=== PATIENT | female | born 1985 | race Caucasian/White ===

== ENCOUNTER 2016-09-22 09:41 | Emergency (ER) | payer MEDICAID ==
--- NOTE | 2016-09-22 09:47 | ER Document Report ---
ED General - General Stated Complaint: POSSIBLE SEIZURE Time Seen by Provider: 09/22/16 09:44 Mode of Arrival: Medic Information source: Patient, Emergency Med Personnel Notes: 30-year-old female history of seizure/pseudoseizure activity with recurrent heroin abuse on Suboxone presents with a seizure-like episode prior to arrival. Patient's significant other noted to be intoxicated on scene patient herself admits to drinking alcohol TRAVEL OUTSIDE OF THE [place] IN LAST 30 DAYS: No - HPI Onset: Just prior to arrival Onset/Duration: Sudden Quality of pain: No pain Severity: Mild Pain Level: Denies Associated symptoms: Weakness Exacerbated by: Denies Relieved by: Denies Similar symptoms previously: Yes Recently seen / treated by doctor: Yes - Related Data Allergies/Adverse Reactions: No Known Allergies Allergy (Unverified 08/21/15 21:22) Past Medical History - Social History Smoking Status: Never Smoker Cigarette use (# per day): No Chew tobacco use (# tins/day): No Smoking Education Provided: No Frequency of alcohol use: Occasional Drug Abuse: Heroin - hx of denies any current use Family History: None Review of Systems - Review of Systems Notes: REVIEW OF SYSTEMS: CONSTITUTIONAL : Denies fever, chills, or sweats. Denies recent illness. EENT: Denies eye, ear, throat, or mouth pain or symptoms. Denies nasal or sinus congestion or discharge. Denies throat, tongue, or mouth swelling or difficulty swallowing. CARDIOVASCULAR: Denies chest pain. Denies palpitations or racing or irregular heart beat. Denies ankle edema. RESPIRATORY: Denies cough, cold, or chest congestion. Denies shortness of breath, difficulty breathing, or wheezing. GASTROINTESTINAL: Denies abdominal pain or distention. Denies nausea, vomiting , or diarrhea. Denies blood in vomitus, stools, or per rectum. Denies black, tarry stools. Denies constipation. GENITOURINARY: Denies difficulty urinating, painful urination, burning, frequency, blood in urine, or discharge. FEMALE GENITOURINARY: Denies vaginal bleeding, heavy or abnormal periods, irregular periods. Denies vaginal discharge or odor. MUSCULOSKELETAL: Denies back or neck pain or stiffness. Denies joint pain or swelling. SKIN: Denies rash, lesions or sores. HEMATOLOGIC : Denies easy bruising or bleeding. LYMPHATIC: Denies swollen, enlarged glands. NEUROLOGICAL: Admits to seizure-like activity PSYCHIATRIC: Denies anxiety or stress. Denies depression, suicidal ideation, or homicidal ideation. ALL OTHER SYSTEMS REVIEWED AND NEGATIVE. PHYSICAL EXAMINATION: GENERAL: Well-appearing, well-nourished and in no acute distress. HEAD: Atraumatic, normocephalic. EYES: Pupils equal round and reactive to light, extraocular movements intact, conjunctiva are normal. ENT: Nares patent, oropharynx clear without exudates. Moist mucous membranes. NECK: Normal range of motion, supple without lymphadenopathy LUNGS: Breath sounds clear to auscultation bilaterally and equal. No wheezes rales or rhonchi. HEART: Regular rate and rhythm without murmurs ABDOMEN: Soft, nontender, nondistended abdomen. No guarding, no rebound. No masses appreciated. Female : deferred Musculoskeletal: Normal range of motion, no pitting or edema. No cyanosis. NEUROLOGICAL: Cranial nerves grossly intact. Normal speech, normal gait. Normal sensory, motor exams patient answering questions with no difficulty PSYCH: Normal mood, normal affect. SKIN: Warm, Dry, normal turgor, no rashes or lesions noted. Dictation was performed using [employer] voice recognition software Physical Exam - Vital signs Vitals: Resp Pulse Ox 20 97 09/22/16 09:49 09/22/16 09:49 Course - Re-evaluation Re-evalutation: 09/22/16 09:46 Initial GCS of 9 however patient is answering questions appropriately answers her name denies any heroin use lab work imaging pending 09/22/16 11:06 His lab work is consistent with benzos cocaine. She otherwise has a negative head CT is alert oriented and is stable for discharge. She had stated that she had only drank 1 beer, alcohol level at 9 AM in the morning is 133. She will be discharged once there is able bodied ride After performing a Medical Screening Examination, I estimate there is LOW risk for ACUTE GLAUCOMA, TEMPORAL ARTERITIS, MENINGITIS, INCRANIAL HEMORRHAGE, or ISCHEMIC STROKE thus I consider the discharge disposition reasonable. I have reevaluated this patient multiple times and no significant life threatening changes are noted. The patient and I have discussed the diagnosis and risks, and we agree with discharging home with close follow-up with the understanding that symptoms and presentations can change. We also discussed returning to the Emergency Department immediately if new or worsening symptoms occur. We have discussed the symptoms which are most concerning (e.g., changing or worsening symptoms, new numbness or weakness, vomiting, fever) that necessitate immediate return. - Vital Signs Vital signs: Temp Pulse Resp BP Pulse Ox 98.8 F 19 120/78 96 09/22/16 10:44 09/22/16 10:07 09/22/16 10:07 09/22/16 10:07 - Laboratory Result Diagrams: 09/22/16 09:49 09/22/16 10:25 Laboratory results interpreted by me: 09/22/16 09/22/16 09:49 10:25 RDW 14.5 H Chloride 110 H BUN 5 L - Diagnostic Test Radiology reviewed: Image reviewed, Reports reviewed - No acute abnormality Discharge - Discharge Clinical Impression: Seizure-like activity, Cocaine abuse, Benzodiazepine abuse, Alcohol abuse Condition: Stable Disposition: HOME, SELF-CARE Instructions: Seizure, Known Epileptic ([facility]) Additional Instructions: Please follow-up with your primary care physician or neurologist for reevaluation. Please decrease the use of illegal substances and heavy alcohol use
[2016-09-22 10:03] LABS: ABSOLUTE BASOPHILS # (AUTO) 0.1 10^3/uL (0.0-0.2); ABSOLUTE EOSINOPHILS # (AUTO) 0.4 10^3/uL (0.0-0.6); ABSOLUTE LYMPHOCYTES (AUTO) 3.1 10^3/uL (0.5-4.7); BASOPHILS % (AUTO) 0.6 % (0-2); EOSINOPHILS % (AUTO) 4.2 % (0-6); HEMATOCRIT 39.5 % (36.0-47.0); HGB HCT DIFFERENCE -0.5; LYMPHOCYTES % (AUTO) 32.6 % (13-45); MEAN CORPUSCULAR HEMOGLOBIN 30.8 pg (27.0-33.4); MEAN CORPUSCULAR VOLUME 94 fl (80-97); MONOCYTES % (AUTO) 10.8 % (3-13); RED BLOOD COUNT 4.22 10^6/uL (3.72-5.28); RED CELL DISTRIBUTION WIDTH 14.5 % (11.5-14.0); SEGMENTED NEUTROPHILS % (AUTO) 51.8 % (42-78); WHITE BLOOD COUNT 9.7 10^3/uL (4.0-10.5)
--- NOTE | 2016-09-22 10:23 | RADIOLOGY REPORT (SQ) ---
EXAM DESCRIPTION: CT HEAD WITHOUT COMPLETED DATE/TIME: 09/22/2016 10:06 am REASON FOR STUDY: intoxicated, seizure like activity COMPARISON: None. TECHNIQUE: Axial images acquired through the brain without intravenous contrast. Images reviewed wi th bone, brain and subdural windows. Images stored on PACS. All CT scanners at this facility use dose modulation, iterative reconstruction, and/or weight based d osing when appropriate to reduce radiation dose to as low as reasonably achievable (ALARA). [facility]: Dose Right [facility]: CareDose [facility]: Dose Right [facility]: Teradose 4D [facility]: [employer] RADIATION DOSE: 64.61 mGy. LIMITATIONS: None. FINDINGS: VENTRICLES: Normal size and contour. CEREBRUM: No masses. No hemorrhage. No midline shift. Normal olguin/white matter differentiation. N o evidence for acute infarction. CEREBELLUM: No masses. No hemorrhage. No alteration of density. No evidence for acute infarction. EXTRAAXIAL SPACES: No fluid collections. No masses. ORBITS AND GLOBE: No intra- or extraconal masses. Normal contour of globe without masses. CALVARIUM: No fracture. PARANASAL SINUSES: No fluid levels. SOFT TISSUES: No mass or hematoma. OTHER: No other significant finding. IMPRESSION: NORMAL BRAIN CT WITHOUT CONTRAST. TECHNICAL DOCUMENTATION: JOB ID: [id number] Quality ID # [id number]: Final reports with documentation of one or more dose reduction techniques (e.g., Au tomated exposure control, adjustment of the mA and/or kV according to patient size, use of iterative reconstruction technique) 2010 [employer]- All Rights Reserved
[2016-09-22 10:45] LABS: URINE BARBITURATES SCREEN NEGATIVE; URINE METHADONE SCREEN NEGATIVE; URINE OPIATES LOW NEGATIVE; URINE PHENCYCLIDINE SCREEN NEGATIVE
[2016-09-22 11:00] LABS: ALANINE AMINOTRANSFERASE 23 U/L (9-52); ALCOHOL 133 mg/dL (NONE DETECTED); ALKALINE PHOSPHATASE 82 U/L (38-126); ANION GAP 13 (5-19); ASPARTATE AMINO TRANSFERASE 22 U/L (14-36); BILIRUBIN,DIRECT 0.3 mg/dL (0.0-0.4); BILIRUBIN,TOTAL 0.3 mg/dL (0.2-1.3); BLOOD UREA NITROGEN 5 mg/dL (7-20); CALCIUM 8.9 mg/dL (8.4-10.2); CARBON DIOXIDE 22 mmol/L (22-30); CHLORIDE 110 mmol/L (98-107); CREATININE RESULT 0.89 mg/dL (0.52-1.25); GLUCOSE 82 mg/dL (75-110); POTASSIUM 3.9 mmol/L (3.6-5.0)
[2016-09-22 12:45] VITALS: BP 114/69
== END 2016-09-22 12:30 | disposition home or self-care (01) ==
LOC: ER 09:41
DX: R56.9 Unspecified convulsions (principal); F14.10 Cocaine abuse, uncomplicated; F10.10 Alcohol abuse, uncomplicated; F19.10 Other psychoactive substance abuse, uncomplicated
CPT/HCPCS: 36415; 70450; 80053; 80307; 85025; 99284

== ENCOUNTER 2019-02-02 20:27 | Emergency (ER) | payer SELFPAY ==
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
--- NOTE | 2019-02-02 21:36 | RADIOLOGY REPORT (SQ) ---
EXAM DESCRIPTION: [facility]: XR CHEST 2 VIEWS Views: 2 CLINICAL HISTORY: 33 years Female, cough, congestion COMPARISON: None. FINDINGS: The lungs are clear. No pneumothorax or significant pleural effusion. Cardiomediastinal silhouette is within normal limits. Bony structures are unremarkable for age. IMPRESSION: 1. No acute cardiothoracic abnormality.
[2019-02-02 21:52] LABS: ABSOLUTE EOSINOPHILS # (AUTO) 0.2 10^3/uL (0.0-0.6); ABSOLUTE LYMPHOCYTES (AUTO) 2.5 10^3/uL (0.5-4.7); ABSOLUTE NEUT (AUTO) 6.8 10^3/uL (1.7-8.2); BASOPHILS % (AUTO) 0.3 % (0-2); EOSINOPHILS % (AUTO) 2.3 % (0-6); HEMATOCRIT 39.1 % (36.0-47.0); HEMOGLOBIN 13.6 g/dL (12.0-15.5); LYMPHOCYTES % (AUTO) 23.7 % (13-45); MEAN CORPUSCULAR HEMOGLOBIN 32.3 pg (27.0-33.4); MEAN CORPUSCULAR HGB CONC 34.7 g/dL (32.0-36.0); MEAN CORPUSCULAR VOLUME 93 fl (80-97); MONOCYTES % (AUTO) 9.3 % (3-13); PLATELET COUNT 312 10^3/uL (150-450); RED BLOOD COUNT 4.19 10^6/uL (3.72-5.28); RED CELL DISTRIBUTION WIDTH 13.5 % (11.5-14.0); SEGMENTED NEUTROPHILS % (AUTO) 64.4 % (42-78); TOTAL CELLS COUNTED % (AUTO) 100 %; WHITE BLOOD COUNT 10.5 10^3/uL (4.0-10.5)
[2019-02-02 22:06] LABS: ALKALINE PHOSPHATASE 70 U/L (38-126); ANION GAP 9 (5-19); ASPARTATE AMINO TRANSFERASE 25 U/L (14-36); BILIRUBIN,DIRECT 0.1 mg/dL (0.0-0.4); BILIRUBIN,TOTAL 0.4 mg/dL (0.2-1.3); BLOOD UREA NITROGEN 11 mg/dL (7-20); CALCIUM 9.5 mg/dL (8.4-10.2); CARBON DIOXIDE 24 mmol/L (22-30); CHLORIDE 106 mmol/L (98-107); GLUCOSE 70 mg/dL (75-110); TOTAL PROTEIN 7.1 g/dL (6.3-8.2)
[2019-02-02 22:14] LABS: URINE BARBITURATES SCREEN NEGATIVE; URINE BENZODIAZEPINES SCREEN UNCONFIRMED POSITIVE; URINE COCAINE SCREEN NEGATIVE; URINE MARIJUANA (THC) SCREEN NEGATIVE; URINE METHADONE SCREEN NEGATIVE; URINE PHENCYCLIDINE SCREEN NEGATIVE
--- NOTE | 2019-02-03 00:05 | EKG REPORT ---
SEVERITY:- OTHERWISE NORMAL ECG - SINUS TACHYCARDIA : Confirmed by: Melissa Chandra MD 03-Feb-2019 00:05:06
[2019-02-03] MEDS ORDERED: KETOROLAC TROMETHAMINE 60 MG/2 ML SDV IM ONE (00:25)
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
[2019-02-03 01:09] VITALS: BP 131/77
== END 2019-02-03 01:09 | disposition home or self-care (01) ==
LOC: ER 20:27
DX: M65.9 Synovitis and tenosynovitis, unspecified (principal); M79.641 Pain in right hand; M79.642 Pain in left hand; M25.531 Pain in right wrist; M25.532 Pain in left wrist; M79.89 Other specified soft tissue disorders; R06.02 Shortness of breath; F17.210 Nicotine dependence, cigarettes, uncomplicated; F32.9 Major depressive disorder, single episode, unspecified; Z79.899 Other long term (current) drug therapy
CPT/HCPCS: 93005; 99284; 96372; 36415; 85025; 81025; 80053; 80307 ×2; 71046; 93010; G0480; J1885

== ENCOUNTER 2020-02-20 10:12 | Inpatient (IN) | payer SELFPAY ==
--- NOTE | 2020-02-20 10:28 | ER Document Report ---
ED General <YARED VARELA - Last Filed: 02/20/20 11:14> - General TRAVEL OUTSIDE OF THE [place] IN LAST 30 DAYS: No <BELL VINSON - Last Filed: 02/20/20 17:14> - General Chief Complaint: Flank Pain Stated Complaint: RIGHT FLANK PAIN,BLOOD IN URINE Time Seen by Provider: 02/20/20 10:28 Notes: 34-year-old female presents with right flank pain severe for about 2 days in the context of lower UTI symptoms for about 3 days of total 5 days of symptoms now with fever flank pain right-sided cannot eat, is very nauseous. She had a history of (YARED VARELA) I did not see this patient. Dr. Varela saw this patient. (BELL VINSON) - HPI Notes: Please avoid this chart. I did not see this patient. Dr. Varela saw this patient (BELL VINSON) - Related Data Allergies/Adverse Reactions: No Known Allergies Allergy (Verified 02/02/19 20:59) Past Medical History - Social History Smoking Status: Unknown if Ever Smoked Family History: None Psychiatric Medical History: Reports: Hx Anxiety, Hx Bipolar Disorder, Hx Depression, Hx Post Traumatic Stress Disorder <BELL VINSON - Last Filed: 02/20/20 17:14> Physical Exam - Vital signs Vitals: Temp Pulse Resp BP Pulse Ox 97.7 F 115 H 22 H 129/87 H 99 02/20/20 10:17 02/20/20 10:17 02/20/20 10:17 02/20/20 10:17 02/20/20 10:17 Course - Laboratory Result Diagrams: 02/20/20 10:38 02/20/20 10:38 <YARED VARELA - Last Filed: 02/20/20 11:14> - Laboratory Result Diagrams: 02/20/20 10:38 02/20/20 10:38 <BELL VINSON - Last Filed: 02/20/20 17:14> - Vital Signs Vital signs: Temp Pulse Resp BP Pulse Ox 100.1 F 128 H 20 100/82 96 02/20/20 14:00 02/20/20 14:00 02/20/20 14:00 02/20/20 14:00 02/20/20 14:00 - Laboratory Laboratory results interpreted by me: 02/20/20 02/20/20 10:20 10:38 WBC 12.8 H Plt Count 503 H Absolute Neuts (auto) 9.1 H Urine Protein 100 H Urine Blood LARGE H Urine Nitrite POSITIVE H Ur Leukocyte Esterase LARGE H Discharge <YARED VARELA - Last Filed: 02/20/20 11:14> <BELL VINSON - Last Filed: 02/20/20 17:14> - Discharge Clinical Impression: Pyelonephritis Condition: Good Disposition: ADMITTED OBSERVATION
[2020-02-20] MEDS ORDERED: ONDANSETRON HCL INJ/PF 4 MG/2 ML SDV IV ONE (10:31)
[2020-02-20] MEDS ORDERED: HYDROMORPHONE HCL INJ/PF 2 MG/ML AMPULE IV ONE ×2 (10:31→12:54)
[2020-02-20 11:07] LABS: APPEARANCE,URINE CLOUDY; BILIRUBIN,URINE NEGATIVE (NEGATIVE); COLOR,URINE YELLOW; GLUCOSE, URINE NEGATIVE (NEGATIVE); KETONES,URINE NEGATIVE (NEGATIVE); LEUKOCYTE ESTERASE,URINE LARGE (NEGATIVE); NITRITE,URINE POSITIVE (NEGATIVE); PROTEIN,URINE 100 mg/dL (NEGATIVE); URINE SPECIFIC GRAVITY 1.016; UROBILINOGEN,URINE NEGATIVE mg/dL (<2.0)
[2020-02-20] MEDS ORDERED: KETOROLAC TROMETHAMINE INJ/PF 30 MG/1 ML SDV IV ONE (11:07)
--- NOTE | 2020-02-20 11:16 | ER Document Report ---
ED General - General Chief Complaint: Flank Pain Stated Complaint: RIGHT FLANK PAIN,BLOOD IN URINE Time Seen by Provider: 02/20/20 10:28 Notes: 34-year-old female presents with right flank pain severe for about 2 days in the context of lower UTI symptoms for about 3 days of total 5 days of symptoms now with fever flank pain right-sided cannot eat, is very nauseous. She had a history of "my kidneys shutting down" with an infection was never had a stone. No vaginal discharge or bleeding. No fevers positive nausea and vomiting. No diarrhea no travel. TRAVEL OUTSIDE OF THE [place] IN LAST 30 DAYS: No - Related Data Allergies/Adverse Reactions: No Known Allergies Allergy (Verified 02/02/19 20:59) Home Medications: MENTAL HEALTH MEDS Past Medical History - Social History Smoking Status: Current Every Day Smoker Chew tobacco use (# tins/day): No Frequency of alcohol use: None Drug Abuse: None Family History: None Patient has homicidal ideation: No Psychiatric Medical History: Reports: Hx Anxiety, Hx Bipolar Disorder, Hx D epression, Hx Post Traumatic Stress Disorder Review of Systems - Review of Systems Notes: REVIEW OF SYSTEMS GEN: Denies fever, chills, weight loss ENT: Denies sore throat, nasal discharge, ear pain EYES: Denies blurry vision, eye pain, discharge CV: Denies chest pain, palpitations, edema RESP: Denies cough, shortness of breath, wheezing GI: Vomiting flank pain lower abdominal pain dysuria MSK: Pain SKIN: Denies rash, skin lesions LYMPH: Denies swollen glands/lymph nodes NEURO: Denies headache, focal weakness or numbness, dizziness PSYCH: Denies depression, suicidal or homicidal ideation PHYSICAL EXAMINATION General: Bed nauseous in obvious pain Head: Atraumatic, normocephalic ENT: Mouth normal, oropharynx moist, no exudates or tonsillar enlargement Eyes: Conjunctiva normal, pupils equal, lids normal Neck: No JVD, supple, no guarding CVS: Normal rate, regular rhythm, no murmurs Resp: No resp distress, equal and normal breath sounds bilaterally GI: Nondistended, soft, no tenderness to palpation, no rebound or guarding Ext: No deformities, no edema, normal range of motion in upper and lower ext Back: Tenderness right Skin: No rash, warm Lymphatic: No lymphadeopathy noted Neuro: Awake, alert. Face symmetric. GCS 15. Physical Exam - Vital signs Vitals: Temp Pulse Resp BP Pulse Ox 97.7 F 115 H 22 H 129/87 H 99 02/20/20 10:17 02/20/20 10:17 02/20/20 10:17 02/20/20 10:17 02/20/20 10:17 Course - Re-evaluation Re-evalutation: 02/20/20 11:15 Huseyin versus stone versus both rule out sepsis Fluids urine labs CT Noncon for stone Patient was given Dilaudid required additional Toradol UA is infected with red cells as well, ordered Rocephin, cultured, still clinically no signs of sepsis, CT pending 02/20/20 14:07 CT negative Give antibiotics fluids and pain meds On reassessment she spiked a temp again as a tachycardic rhythm. This is likely sinus tach. I will give her additional fluids and Toradol which works better than the Dilaudid for her She could have passed a stone or have a resistant UTI. Will give her more time with fluids and antipyretics before escalating about coverage bili will admit to hospitalist. 02/20/20 18:50 Discussed with Joellen, and L1 for admission. - Vital Signs Vital signs: Temp Pulse Resp BP Pulse Ox 98.4 F 127 H 23 H 124/70 99 02/20/20 17:17 02/20/20 17:17 02/20/20 17:17 02/20/20 17:17 02/20/20 17:17 - Laboratory Result Diagrams: 02/20/20 10:38 02/20/20 10:38 Laboratory results interpreted by me: 02/20/20 02/20/20 10:20 10:38 WBC 12.8 H Plt Count 503 H Absolute Neuts (auto) 9.1 H Urine Protein 100 H Urine Blood LARGE H Urine Nitrite POSITIVE H Ur Leukocyte Esterase LARGE H - Diagnostic Test Radiology reviewed: Image reviewed, Reports reviewed Critical Care Note - Critical Care Note Total time excluding time spent on procedures (mins): 32 Comments: The above patient is critically ill. Not including procedures, but including direct re-evaluations, speaking with patient and/or consultants, interpreting results, and documenting, I spent the total amount of minute listed listed above on critical care time Discharge - Discharge Clinical Impression: Pyelonephritis Condition: Good Disposition: ADMITTED OBSERVATION Admitting Provider: Vilma (Hospitalist) Unit Admitted: Medical Floor
[2020-02-20 11:27] LABS: ABSOLUTE EOSINOPHILS # (AUTO) 0.1 10^3/uL (0.0-0.6); ABSOLUTE LYMPHOCYTES (AUTO) 2.5 10^3/uL (0.5-4.7); ABSOLUTE MONOCYTES (AUTO) 1.1 10^3/uL (0.1-1.4); ABSOLUTE NEUT (AUTO) 9.1 10^3/uL (1.7-8.2); BASOPHILS % (AUTO) 0.2 % (0-2); EOSINOPHILS % (AUTO) 0.9 % (0-6); HEMATOCRIT 38.9 % (36.0-47.0); HEMOGLOBIN 13.2 g/dL (12.0-15.5); LYMPHOCYTES % (AUTO) 19.4 % (13-45); MEAN CORPUSCULAR HEMOGLOBIN 32.1 pg (27.0-33.4); MEAN CORPUSCULAR HGB CONC 33.9 g/dL (32.0-36.0); MEAN CORPUSCULAR VOLUME 95 fl (80-97); MONOCYTES % (AUTO) 8.5 % (3-13); PLATELET COUNT 503 10^3/uL (150-450); TOTAL CELLS COUNTED % (AUTO) 100 %; WHITE BLOOD COUNT 12.8 10^3/uL (4.0-10.5)
[2020-02-20] MEDS ORDERED: CEFTRIAXONE 1 GM/D5W RTU 1 GM/50 ML RTUPB IV ONE (11:30)
[2020-02-20] MEDS ORDERED: NORMAL SALINE 1000 ML 1,000 ML IV ONE (11:31)
[2020-02-20 11:40] LABS: ANION GAP 12 (5-19); BLOOD UREA NITROGEN 12 mg/dL (7-20); CALCIUM 9.3 mg/dL (8.4-10.2); CARBON DIOXIDE 22 mmol/L (22-30); CHLORIDE 106 mmol/L (98-107); GLUCOSE 105 mg/dL (75-110); POTASSIUM 4.3 mmol/L (3.6-5.0)
--- NOTE | 2020-02-20 12:35 | RADIOLOGY REPORT (SQ) ---
EXAM DESCRIPTION: CT ABD/PELVIS NO ORAL OR IV IMAGES COMPLETED DATE/TIME: 02/20/2020 11:28 am REASON FOR STUDY: R stone COMPARISON: 2015 TECHNIQUE: CT scan of the abdomen and pelvis performed without intravenous or oral contrast. Images reviewed with lung, soft tissue, and bone windows. Reconstructed coronal and sagittal MPR images revi ewed. All images stored on PACS. All CT scanners at this facility use dose modulation, iterative reconstruction, and/or weight based d osing when appropriate to reduce radiation dose to as low as reasonably achievable (ALARA). [facility]: Dose Right [facility]: CareDose [facility]: Dose Right [facility]: Teradose 4D [facility]: Smart BlackStratus RADIATION DOSE: CT Rad equipment meets quality standard of care and radiation dose reduction techniq ues were employed. CTDIvol: 8.4 mGy. DLP: 457 mGy-cm.mGy. LIMITATIONS: None. FINDINGS: LOWER CHEST: No significant findings. No nodules or infiltrates. NON-CONTRASTED LIVER, SPLEEN, ADRENALS: Evaluation limited by lack of IV contrast. No identified sign ificant masses. PANCREAS: No masses. No peripancreatic inflammatory changes. GALLBLADDER: No identified stones by CT criteria. No inflammatory changes to suggest cholecystitis. RIGHT KIDNEY AND URETER: No suspicious masses. Assessment limited by lack of IV contrast. No signif icant calcifications. Marked hydronephrosis and hydroureter. There is no definitive calculus ident ified. Possibly passed calculus. LEFT KIDNEY AND URETER: No suspicious masses. Assessment limited by lack of IV contrast. No signifi cant calcifications. No hydronephrosis or hydroureter. AORTA AND RETROPERITONEUM: No aneurysm. No retroperitoneal masses or adenopathy. BOWEL AND PERITONEAL CAVITY: No obvious masses or inflammatory changes. No free fluid. APPENDIX: Not visualized. PELVIS, BLADDER, AND ABDOMINAL WALL:No abnormal masses. No free fluid. Bladder normal. BONES: No significant findings. OTHER: No other significant finding. IMPRESSION: Marked hydronephrosis and hydroureter on the right without defined etiology. Possibly p assed stone. COMMENT: Quality ID # [id number]: Final reports with documentation of one or more dose reduction techniques (e.g., Automated exposure control, adjustment of the mA and/or kV according to patient size, use of iterative reconstruction technique) TECHNICAL DOCUMENTATION: JOB ID: [id number] 2011 [employer]- All Rights Reserved Reading location - IP/workstation name: [email or web address]
[2020-02-20] MEDS ORDERED: ACETAMINOPHEN 325 MG TABLET PO PRN (15:45)
[2020-02-20] MEDS ORDERED: TEMAZEPAM 7.5 MG CAPSULE PO PRN (15:45)
[2020-02-20] MEDS ORDERED: IPRATROPIUM/ALBUTEROL 0.5-2.5 MG/3 ML AMPUL NEB PRN (15:45)
--- NOTE | 2020-02-20 15:45 | PDOC H&P ---
History of Present Illness History of Present Illness: GLORIA HESS is a 34 year old female past medical history of schizophrenia who presented to ED complaining of to 3 days of dysuria, patient is stating that about 3 to 4 days ago she noticed that she was starting to have bladder infection [place] the mall and took some OTC medications to flush her bladder, stating her symptoms did not get any better and she noticed quynh hematuria this morning, associated with right-sided flank pain, anorexia, nausea. Pain is sharp, 5/5 on severity scale, radiating from right flank to right groin, worsened with coughing, breathing and movement. In ED she was noted to be febrile, tachycardic, UA positive for leukocyte esterase and blood, leukocytosi s, CT abdomen and pelvis showed marked hydronephrosis and hydroureter on the right without defined etiology. Hospitalist consulted for admission. Past Medical History Psychiatric Medical History: Reports: Bipolar Disorder, Depression, Post Traumatic Stress Disorder Social History Smoking Status: Current Every Day Smoker Electronic Cigarette use?: No Family History Family History: None Parental Family History Reviewed: Yes Children Family History Reviewed: Yes Sibling(s) Family History Reviewed.: Yes Medication/Allergy Home Medications: Alprazolam [Xanax] 1 mg PO QID PRN 02/02/19 Lamotrigine [Lamictal] 100 mg PO DAILY 02/02/19 Paroxetine HCl [Paxil 20 mg Tablet] 1 tab PO QHS 02/02/19 Quetiapine Fumarate [Seroquel] 600 mg PO QHS 02/02/19 Naproxen 500 mg PO BID PRN 7 Days #14 tablet 02/03/19 Cefuroxime Axetil [Ceftin 500 mg Tablet] 1 tab PO BID #20 tablet 02/20/20 Naproxen 500 mg PO BID #10 tablet 02/20/20 Ondansetron [Zofran Odt 4 mg Tablet] 1 - 2 tab PO Q4HP PRN #10 tab.rapdis 02/20/20 Oxycodone HCl [Oxy-Ir 5 mg Tablet] 5 mg PO Q4HP PRN #7 tab 02/20/20 Allergies/Adverse Reactions: No Known Allergies Allergy (Verified 02/02/19 20:59) Review of Systems Review of Systems: as per hpi Physical Exam Vital Signs: Temp Pulse Resp BP Pulse Ox 100.1 F 128 H 20 100/82 96 02/20/20 14:00 02/20/20 14:00 02/20/20 14:00 02/20/20 14:00 02/20/20 14:00 Intake & Output 02/19/20 02/20/20 02/21/20 06:59 06:59 06:59 Intake Total 1050 Balance 1050 Weight 80.1 kg General appearance: PRESENT: obese, well-developed, well-nourished, other - Sitting on the edge of the bed, appears very uncomfortable in pain. Restless. Head exam: PRESENT: atraumatic, normocephalic Neck exam: ABSENT: carotid bruit, JVD, lymphadenopathy, thyromegaly Respiratory exam: PRESENT: clear to auscultation ad, symmetrical, other - Shallow breathing. ABSENT: rales, rhonchi, wheezes Cardiovascular exam: PRESENT: RRR, tachycardia. ABSENT: diastolic murmur, rubs, systolic murmur Pulses: PRESENT: normal dorsalis pedis pul GI/Abdominal exam: PRESENT: normal bowel sounds, soft. ABSENT: distended, guarding, mass, organolmegaly, rebound, tenderness Extremities exam: PRESENT: full ROM. ABSENT: calf tenderness, clubbing, pedal edema Musculoskeletal exam: PRESENT: tenderness - Bilateral costovertebral tenderness worse on the right side. Neurological exam: PRESENT: alert, awake, oriented to person, oriented to place, oriented to time, oriented to situation, CN II-XII grossly intact. ABSENT: motor sensory deficit Results Laboratory Results: 02/20/20 10:38 02/20/20 10:38 02/20/20 02/20/20 02/20/20 10:20 10:38 10:38 WBC 12.8 H RBC 4.10 Hgb 13.2 Hct 38.9 MCV 95 MCH 32.1 MCHC 33.9 RDW 13.0 Plt Count 503 H Seg Neutrophils % 71.0 Sodium 139.6 Potassium 4.3 Chloride 106 Carbon Dioxide 22 Anion Gap 12 BUN 12 Creatinine 0.68 Est GFR ( Amer) > 60 Glucose 105 Calcium 9.3 Urine Color YELLOW Urine Appearance CLOUDY Urine pH 6.0 Ur Specific [place] 1.016 Urine Protein 100 H Urine Glucose (UA) NEGATIVE Urine Ketones NEGATIVE Urine Blood LARGE H Urine Nitrite POSITIVE H Ur Leukocyte Esterase LARGE H Urine WBC (Auto) >182 Urine RBC (Auto) >182 Impressions: Abdomen/Pelvis CT 02/20/20 10:31 IMPRESSION: Marked hydronephrosis and hydroureter on the right without defined etiology. Possibly passed stone. Assessment and Plan - Diagnosis (1) Pyelonephritis Is this a current diagnosis for this admission?: Yes Plan: Presented with gross hematuria and complaining of bilateral flank pain. CT abdomen pelvis positive for right hydroureteronephrosis and hydroureter, no nephrolithiasis observed. Admit to floor, empiric broad-spectrum IV antibiotics, urine culture, blood culture, opioid and nonopioid analgesia, cautious volume restriction guided by volume status. (2) Hematuria Qualifiers: Hematuria type: gross Qualified Code(s): R31.0 - Gross hematuria Is this a current diagnosis for this admission?: Yes Plan: Due to #1. Monitor H&H. Repeat UA once pyelonephritis has been treated. (3) Schizophrenia Qualifiers: Schizophrenia type: unspecified Qualified Code(s): F20.9 - Schizophrenia, unspecified Is this a current diagnosis for this admission?: Yes Plan: Controlled. Denies any auditory visual hallucination. Resume home meds. Outpatient PCP and psychiatry follow-up. (4) Tobacco abuse Is this a current diagnosis for this admission?: Yes Plan: Counseled on quitting. NicoDerm patch will be provided. (5) Obesity Is this a current diagnosis for this admission?: Yes Plan: BMI 30.3. Diet and lifestyle modification recommended. - Time Time Spent with patient: 25-34 minutes Anticipated Discharge Disposition: Home, Self Care Anticipated Discharge Timeframe: within 48 hours
[2020-02-20] MEDS ORDERED: LABETALOL HCL INJ 20 MG/4 ML DISP.SYRIN IV PRN (15:48)
[2020-02-20] MEDS: ONDANSETRON HCL INJ/PF 4 MG/2 ML SDV IV PRN (16:44)
[2020-02-20] MEDS: NORMAL SALINE 1000 ML 1,000 ML IV PRN ×2 (16:44→23:07)
[2020-02-20] MEDS: MORPHINE SULFATE 10 MG/ML INJ IV PRN ×2 (16:45→22:06)
[2020-02-20] MEDS: LAMOTRIGINE 100 MG TABLET PO SCH (16:45)
[2020-02-20] MEDS ORDERED: ALPRAZOLAM 0.5 MG TABLET PO SCH (18:00)
[2020-02-20] MEDS: QUETIAPINE FUMARATE 100 MG TABLET PO SCH (22:07)
[2020-02-20] MEDS: FAMOTIDINE 20 MG TABLET PO SCH (22:07)
[2020-02-20] MEDS ORDERED: CEFOXITIN INJ 1 GM VIAL ONE (22:36)
[2020-02-20] MEDS: ALPRAZOLAM 0.5 MG TABLET PO PRN (23:08)
[2020-02-20] MEDS: CEFOXITIN 1 GM/D5W RTU 1 GM/50 ML RTUPB IV SCH (23:08)
[2020-02-21] MEDS: MORPHINE SULFATE 10 MG/ML INJ IV PRN ×5 (05:20→23:58)
[2020-02-21] MEDS: NORMAL SALINE 1000 ML 1,000 ML IV PRN ×3 (05:21→21:12)
[2020-02-21 05:45] LABS: ALKALINE PHOSPHATASE 55 U/L (38-126); ANION GAP 7 (5-19); ASPARTATE AMINO TRANSFERASE 14 U/L (14-36); BILIRUBIN,DIRECT 0.1 mg/dL (0.0-0.4); BILIRUBIN,TOTAL 0.3 mg/dL (0.2-1.3); BLOOD UREA NITROGEN 10 mg/dL (7-20); CALCIUM 8.3 mg/dL (8.4-10.2); CARBON DIOXIDE 19 mmol/L (22-30); CHLORIDE 111 mmol/L (98-107); GLUCOSE 91 mg/dL (75-110); POTASSIUM 3.9 mmol/L (3.6-5.0); TOTAL PROTEIN 5.4 g/dL (6.3-8.2)
[2020-02-21 06:04] LABS: HEMOGLOBIN 11.3 g/dL (12.0-15.5); MEAN CORPUSCULAR HEMOGLOBIN 32.1 pg (27.0-33.4); MEAN CORPUSCULAR HGB CONC 34.1 g/dL (32.0-36.0); MEAN CORPUSCULAR VOLUME 94 fl (80-97); PLATELET COUNT 316 10^3/uL (150-450); RED BLOOD COUNT 3.51 10^6/uL (3.72-5.28); RED CELL DISTRIBUTION WIDTH 12.9 % (11.5-14.0); WHITE BLOOD COUNT 21.4 10^3/uL (4.0-10.5)
[2020-02-21] MEDS: ALPRAZOLAM 0.5 MG TABLET PO PRN ×3 (08:50→21:07)
--- NOTE | 2020-02-21 10:22 | PDOC PROGRESS REPORT ---
Subjective Date:: 02/21/20 Subjective:: GLORIA HESS is a 34 year old female past medical history of schizophrenia who presented to ED complaining of to 3 days of dysuria, patient is stating that about 3 to 4 days ago she noticed that she was starting to have bladder infection went [place] the mall and took some OTC medications to flush her bladder, stating her symptoms did not get any better and she noticed quynh hematuria this morning, associated with right-sided flank pain, anorexia, nausea. Pain is sharp, 5/5 on severity scale, radiating from right flank to right groin, worsened with coughing, breathing and movement. In ED she was noted to be febrile, tachycardic, UA positive for leukocyte esterase and blood, l eukocytosis, CT abdomen and pelvis showed marked hydronephrosis and hydroureter on the right without defined etiology. Hospitalist consulted for admission. 02/21/2020. No acute events noted. Saw patient this morning comfortably sleeping, still complaining of significant bilateral flank pain however controlled with pain medication that she is receiving in the hospital, she is still complaining of hematuria, denies any fever, chills, nausea, vomiting, diarrhea, constipation. Reason For Visit: PYELONEPHRITIS Physical Exam Vital Signs: Temp Pulse Resp BP Pulse Ox 97.7 F 87 17 101/55 L 96 02/21/20 07:26 02/21/20 07:26 02/21/20 07:26 02/21/20 07:26 02/21/20 07:26 Intake & Output 02/20/20 02/21/20 02/22/20 06:59 06:59 06:59 Intake Total 3112 Output Total 700 Balance 2412 Weight 80 kg General appearance: PRESENT: no acute distress, obese, well-developed, well- nourished Head exam: PRESENT: atraumatic, normocephalic Respiratory exam: PRESENT: clear to auscultation ad. ABSENT: rales, rhonchi, wheezes Cardiovascular exam: PRESENT: RRR. ABSENT: diastolic murmur, rubs, systolic murmur Pulses: PRESENT: normal dorsalis pedis pul GI/Abdominal exam: PRESENT: normal bowel sounds, soft. ABSENT: distended, guarding, mass, organolmegaly, rebound, tenderness Gentrourinary exam: PRESENT: other - Bilateral costovertebral tenderness worse on the right side. Neurological exam: PRESENT: alert, awake, oriented to person, oriented to place, oriented to time, oriented to situation, CN II-XII grossly intact. ABSENT: motor sensory deficit Results Laboratory Results: 02/21/20 04:29 02/21/20 04:29 02/20/20 02/20/20 02/20/20 10:20 10:38 10:38 WBC 12.8 H RBC 4.10 Hgb 13.2 Hct 38.9 MCV 95 MCH 32.1 MCHC 33.9 RDW 13.0 Plt Count 503 H Seg Neutrophils % 71.0 Sodium 139.6 Potassium 4.3 Chloride 106 Carbon Dioxide 22 Anion Gap 12 BUN 12 Creatinine 0.68 Est GFR ( Amer) > 60 Glucose 105 Calcium 9.3 Magnesium Total Bilirubin AST Alkaline Phosphatase Total Protein Albumin Urine Color YELLOW Urine Appearance CLOUDY Urine pH 6.0 Ur Specific [place] 1.016 Urine Protein 100 H Urine Glucose (UA) NEGATIVE Urine Ketones NEGATIVE Urine Blood LARGE H Urine Nitrite POSITIVE H Ur Leukocyte Esterase LARGE H Urine WBC (Auto) >182 Urine RBC (Auto) >182 02/21/20 02/21/20 04:29 04:29 WBC 21.4 H RBC 3.51 L Hgb 11.3 L Hct 33.0 L MCV 94 MCH 32.1 MCHC 34.1 RDW 12.9 Plt Count 316 Seg Neutrophils % Sodium 137.1 Potassium 3.9 Chloride 111 H Carbon Dioxide 19 L Anion Gap 7 BUN 10 Creatinine 0.66 Est GFR ( Amer) > 60 Glucose 91 Calcium 8.3 L Magnesium 1.6 Total Bilirubin 0.3 AST 14 Alkaline Phosphatase 55 Total Protein 5.4 L Albumin 3.0 L Urine Color Urine Appearance Urine pH Ur Specific [place] Urine Protein Urine Glucose (UA) Urine Ketones Urine Blood Urine Nitrite Ur Leukocyte Esterase Urine WBC (Auto) Urine RBC (Auto) Impressions: Abdomen/Pelvis CT 02/20/20 10:31 IMPRESSION: Marked hydronephrosis and hydroureter on the right without defined etiology. Possibly passed stone. Assessment and Plan - Diagnosis (1) Pyelonephritis Is this a current diagnosis for this admission?: Yes Plan: Presented with gross hematuria and complaining of bilateral flank pain. CT abdomen pelvis positive for right hydroureteronephrosis and hydroureter, no nephrolithiasis observed. Day 2 IV antibiotics. Day 2 IV ceftriaxone. Continue empiric broad-spectrum IV antibiotics, urine culture, blood culture, opioid and nonopioid analgesia, cautious volume restriction guided by volume status. (2) Hematuria Qualifiers: Hematuria type: gross Qualified Code(s): R31.0 - Gross hematuria Is this a current diagnosis for this admission?: Yes Plan: Due to #1. Monitor H&H. Repeat UA once pyelonephritis has been treated. (3) Schizophrenia Qualifiers: Schizophrenia type: unspecified Qualified Code(s): F20.9 - Schizophrenia, unspecified Is this a current diagnosis for this admission?: Yes Plan: Controlled. Denies any auditory visual hallucination. Resume home meds. Outpatient PCP and psychiatry follow-up. (4) Tobacco abuse Is this a current diagnosis for this admission?: Yes Plan: Counseled on quitting. NicoDerm patch will be provided. (5) Obesity Is this a current diagnosis for this admission?: Yes Plan: BMI 30.3. Diet and lifestyle modification recommended. - Time Time Spent with patient: 25-34 minutes Anticipated Discharge Disposition: Home, Self Care Anticipated Discharge Timeframe: within 48 hours
[2020-02-21] MEDS: CEFOXITIN 1 GM/D5W RTU 1 GM/50 ML RTUPB IV SCH ×2 (10:30→21:08)
[2020-02-21] MEDS: PAROXETINE HCL 20 MG TABLET PO SCH (10:30)
[2020-02-21] MEDS: LAMOTRIGINE 100 MG TABLET PO SCH (10:30)
[2020-02-21] MEDS: FAMOTIDINE 20 MG TABLET PO SCH ×2 (10:30→21:07)
[2020-02-21] MEDS: ENOXAPARIN SODIUM INJ 40 MG/0.4 ML DISP.SYRIN SUBCUT SCH (10:36)
[2020-02-21] MEDS: DOCUSATE SODIUM 100 MG CAPSULE PO SCH (10:36)
[2020-02-21] MEDS ORDERED: NICOTINE 21 MG/24 HR PATCH.TD24 TD SCH (14:00)
[2020-02-21] MEDS ORDERED: VANCOMYCIN HCL 0 MG in DEXTROSE 5%-WATER 250 ML IV NR (16:45)
[2020-02-21] MEDS ORDERED: VANCOMYCIN HCL INJ 1000 MG VIAL IV PRN (16:50)
[2020-02-21] MEDS ORDERED: VANCOMYCIN HCL INJ 1000 MG VIAL ONE (17:15)
[2020-02-21] MEDS: ONDANSETRON HCL INJ/PF 4 MG/2 ML SDV IV PRN (17:25)
[2020-02-21] MEDS: VANCOMYCIN HCL 1,000 MG in DEXTROSE 5%-WATER 250 ML IV SCH (17:28)
[2020-02-21] MEDS: PROMETHAZINE HCL INJ 25 MG/1 ML VIAL IV PRN ×2 (17:58→22:45)
[2020-02-21 20:06] LABS: C DIFFICILE GDH NEGATIVE (NEGATIVE)
[2020-02-21] MEDS: QUETIAPINE FUMARATE 100 MG TABLET PO SCH (21:07)
[2020-02-22] MEDS: VANCOMYCIN HCL 1,000 MG in DEXTROSE 5%-WATER 250 ML IV SCH ×2 (01:39→22:59)
[2020-02-22] MEDS: MORPHINE SULFATE 10 MG/ML INJ IV PRN ×5 (05:15→20:56)
[2020-02-22] MEDS: ALPRAZOLAM 0.5 MG TABLET PO PRN ×3 (06:56→19:29)
[2020-02-22 07:10] LABS: ABSOLUTE EOSINOPHILS # (AUTO) 0.4 10^3/uL (0.0-0.6); ABSOLUTE LYMPHOCYTES (AUTO) 2.4 10^3/uL (0.5-4.7); ABSOLUTE MONOCYTES (AUTO) 1.7 10^3/uL (0.1-1.4); ABSOLUTE NEUT (AUTO) 9.3 10^3/uL (1.7-8.2); BASOPHILS % (AUTO) 0.2 % (0-2); EOSINOPHILS % (AUTO) 2.9 % (0-6); HEMATOCRIT 30.7 % (36.0-47.0); HEMOGLOBIN 10.4 g/dL (12.0-15.5); LYMPHOCYTES % (AUTO) 17.4 % (13-45); MEAN CORPUSCULAR HGB CONC 33.8 g/dL (32.0-36.0); MEAN CORPUSCULAR VOLUME 95 fl (80-97); MONOCYTES % (AUTO) 12.2 % (3-13); PLATELET COUNT 338 10^3/uL (150-450); RED BLOOD COUNT 3.24 10^6/uL (3.72-5.28); RED CELL DISTRIBUTION WIDTH 13.2 % (11.5-14.0); SEGMENTED NEUTROPHILS % (AUTO) 67.3 % (42-78); TOTAL CELLS COUNTED % (AUTO) 100 %; WHITE BLOOD COUNT 13.8 10^3/uL (4.0-10.5)
[2020-02-22] MEDS: NORMAL SALINE 1000 ML 1,000 ML IV PRN ×3 (08:50→21:03)
[2020-02-22] MEDS ORDERED: VANCOMYCIN HCL 1,000 MG in DEXTROSE 5%-WATER 250 ML IV SCH (10:00)
[2020-02-22] MEDS: DOCUSATE SODIUM 100 MG CAPSULE PO SCH (10:11)
[2020-02-22] MEDS: CEFOXITIN 1 GM/D5W RTU 1 GM/50 ML RTUPB IV SCH ×2 (10:11→22:26)
[2020-02-22] MEDS: FAMOTIDINE 20 MG TABLET PO SCH ×2 (10:11→21:12)
[2020-02-22] MEDS: ENOXAPARIN SODIUM INJ 40 MG/0.4 ML DISP.SYRIN SUBCUT SCH (10:12)
--- NOTE | 2020-02-22 11:44 | PDOC PROGRESS REPORT ---
Subjective Date:: 02/22/20 Subjective:: GLORIA HESS is a 34 year old female past medical history of schizophrenia who presented to ED complaining of to 3 days of dysuria, patient is stating that about 3 to 4 days ago she noticed that she was starting to have bladder infection [place] the mall and took some OTC medications to flush her bladder, stating her symptoms did not get any better and she noticed quynh hematuria this morning, associated with right-sided flank pain, anorexia, nausea. Pain is sharp, 5/5 on severity scale, radiating from right flank to right groin, worsened with coughing, breathing and movement. In ED she was noted to be febrile, tachycardic, UA positive for leukocyte esterase and blood, l eukocytosis, CT abdomen and pelvis showed marked hydronephrosis and hydroureter on the right without defined etiology. Hospitalist consulted for admission. 02/21/2020. No acute events noted. Saw patient this morning comfortably sleeping, still complaining of significant bilateral flank pain however controlled with pain medication that she is receiving in the hospital, she is still complaining of hematuria, denies any fever, chills, nausea, vomiting, diarrhea, constipation. 02/22/2020. No acute events overnight. On my encounter patient comfortably sleeping easily arousable, stating that her pain is much better, hematuria is improving, denies any fever, chills, nausea, vomiting, diarrhea, constipation or any urinary symptoms. Stating that her pain has been controlled with IV morphine that he is receiving. Patient still has significant leukocytosis and blood culture is growing staph aureus noted to be contamination. Repeat blood culture still pending. Possible discharge home tomorrow. Reason For Visit: PYELONEPHRITIS Physical Exam Vital Signs: Temp Pulse Resp BP Pulse Ox 97.8 F 67 16 103/50 L 97 02/22/20 08:00 02/22/20 08:00 02/22/20 08:00 02/22/20 08:00 02/22/20 08:00 Intake & Output 02/21/20 02/22/20 02/23/20 06:59 06:59 06:59 Intake Total 3112 4820 Output Total 700 3150 Balance 2412 1670 Weight 80 kg 81.8 kg General appearance: PRESENT: no acute distress, obese, well-developed, well- nourished Head exam: PRESENT: atraumatic, normocephalic Respiratory exam: PRESENT: clear to auscultation ad. ABSENT: rales, rhonchi, wheezes Cardiovascular exam: PRESENT: RRR. ABSENT: diastolic murmur, rubs, systolic murmur GI/Abdominal exam: PRESENT: normal bowel sounds, soft. ABSENT: distended, guarding, mass, organolmegaly, rebound, tenderness Extremities exam: PRESENT: full ROM, other - Bilateral CVA tenderness much improved compared to yesterday.. ABSENT: calf tenderness, clubbing, pedal edema Neurological exam: PRESENT: alert, awake, oriented to person, oriented to place, oriented to time, oriented to situation, CN II-XII grossly intact. ABSENT: mo tor sensory deficit Results Laboratory Results: 02/22/20 06:45 02/21/20 04:29 02/22/20 06:45 WBC 13.8 H RBC 3.24 L Hgb 10.4 L Hct 30.7 L MCV 95 MCH 32.0 MCHC 33.8 RDW 13.2 Plt Count 338 Seg Neutrophils % 67.3 02/20/20 16:45 Blood Blood Culture (PCR) - Final Staphylococcus Aureus 02/20/20 10:20 Clean Catch Midstream Urine Culture - Final Escherichia Coli Impressions: Abdomen/Pelvis CT 02/20/20 10:31 IMPRESSION: Marked hydronephrosis and hydroureter on the right without defined etiology. Possibly passed stone. Assessment and Plan - Diagnosis (1) Pyelonephritis Is this a current diagnosis for this admission?: Yes Plan: Due to E. coli pansensitive. Still having significant leukocytosis. Presented with gross hematuria and complaining of bilateral flank pain. CT abdomen pelvis positive for right hydroureteronephrosis and hydroureter, no nephrolithiasis observed. Day 3 IV antibiotics. Day 3 IV ceftriaxone. Continue empiric broad-spectrum IV antibiotics, urine culture, blood culture, opioid and nonopioid analgesia. If leukocytosis improves, patient can be switched to p.o. antibiotics at [place] home tomorrow. (2) Hematuria Qualifiers: Hematuria type: gross Qualified Code(s): R31.0 - Gross hematuria Is this a current diagnosis for this admission?: Yes Plan: Improving. Due to #1. Monitor H&H. Repeat UA once pyelonephritis has been treated. (3) Schizophrenia Qualifiers: Schizophrenia type: unspecified Qualified Code(s): F20.9 - Schizophrenia, unspecified Is this a current diagnosis for this admission?: Yes Plan: Controlled. Denies any auditory visual hallucination. Resume home meds. Outpatient PCP and psychiatry follow-up. (4) Tobacco abuse Is this a current diagnosis for this admission?: Yes Plan: Counseled on quitting. NicoDerm patch will be provided. (5) Obesity Is this a current diagnosis for this admission?: Yes Plan: BMI 30.3. Diet and lifestyle modification recommended. - Time Time Spent with patient: 25-34 minutes Smoking Cessation Education: 3 to 10 minutes Medications reviewed and adjusted accordingly: Yes Anticipated Discharge Disposition: Home, Self Care Anticipated Discharge Timeframe: within 24 hours
[2020-02-22 12:52] LABS: APPEARANCE,URINE CLEAR; BILIRUBIN,URINE NEGATIVE (NEGATIVE); COLOR,URINE YELLOW; GLUCOSE, URINE NEGATIVE (NEGATIVE); KETONES,URINE NEGATIVE (NEGATIVE); LEUKOCYTE ESTERASE,URINE SMALL (NEGATIVE); NITRITE,URINE NEGATIVE (NEGATIVE); PROTEIN,URINE NEGATIVE (NEGATIVE); URINE SPECIFIC GRAVITY 1.012; UROBILINOGEN,URINE NEGATIVE mg/dL (<2.0)
[2020-02-22] MEDS: KETOROLAC TROMETHAMINE INJ/PF 30 MG/1 ML SDV IV PRN ×2 (13:01→19:29)
[2020-02-22] MEDS: PAROXETINE HCL 20 MG TABLET PO SCH (13:10)
[2020-02-22] MEDS: LAMOTRIGINE 100 MG TABLET PO SCH (13:10)
[2020-02-22] MEDS: VARENICLINE TARTRATE 0.5 MG TABLET PO SCH (13:14)
[2020-02-22] MEDS: ONDANSETRON HCL INJ/PF 4 MG/2 ML SDV IV PRN (18:21)
[2020-02-22] MEDS: QUETIAPINE FUMARATE 100 MG TABLET PO SCH (21:12)
[2020-02-22] MEDS: OXYCODONE-ACETAMINOPHEN 5-325 MG TABLET PO PRN (21:13)
[2020-02-23] MEDS: KETOROLAC TROMETHAMINE INJ/PF 30 MG/1 ML SDV IV PRN ×3 (01:43→14:01)
[2020-02-23] MEDS: ALPRAZOLAM 0.5 MG TABLET PO PRN ×3 (01:44→14:02)
[2020-02-23] MEDS: NORMAL SALINE 1000 ML 1,000 ML IV PRN (03:31)
[2020-02-23] MEDS: VANCOMYCIN HCL 1,000 MG in DEXTROSE 5%-WATER 250 ML IV SCH (05:23)
[2020-02-23] MEDS: OXYCODONE-ACETAMINOPHEN 5-325 MG TABLET PO PRN ×2 (05:31→11:07)
[2020-02-23] MEDS ORDERED: PHARMACY COMMUNICATION ORDER MC ONE (09:30)
[2020-02-23 09:46] LABS: ABSOLUTE EOSINOPHILS # (AUTO) 0.3 10^3/uL (0.0-0.6); ABSOLUTE MONOCYTES (AUTO) 0.9 10^3/uL (0.1-1.4); ABSOLUTE NEUT (AUTO) 4.4 10^3/uL (1.7-8.2); BASOPHILS % (AUTO) 0.5 % (0-2); EOSINOPHILS % (AUTO) 3.8 % (0-6); HEMOGLOBIN 10.4 g/dL (12.0-15.5); LYMPHOCYTES % (AUTO) 26.4 % (13-45); MEAN CORPUSCULAR HEMOGLOBIN 32.5 pg (27.0-33.4); MEAN CORPUSCULAR HGB CONC 34.5 g/dL (32.0-36.0); MEAN CORPUSCULAR VOLUME 94 fl (80-97); MONOCYTES % (AUTO) 11.6 % (3-13); PLATELET COUNT 315 10^3/uL (150-450); RED BLOOD COUNT 3.19 10^6/uL (3.72-5.28); RED CELL DISTRIBUTION WIDTH 12.9 % (11.5-14.0); SEGMENTED NEUTROPHILS % (AUTO) 57.7 % (42-78); TOTAL CELLS COUNTED % (AUTO) 100 %; WHITE BLOOD COUNT 7.6 10^3/uL (4.0-10.5)
[2020-02-23 10:12] LABS: ANION GAP 5 (5-19); BLOOD UREA NITROGEN 6 mg/dL (7-20); CALCIUM 8.2 mg/dL (8.4-10.2); CARBON DIOXIDE 23 mmol/L (22-30); CHLORIDE 110 mmol/L (98-107); GLUCOSE 82 mg/dL (75-110); POTASSIUM 3.9 mmol/L (3.6-5.0)
[2020-02-23] MEDS: FAMOTIDINE 20 MG TABLET PO SCH (11:05)
[2020-02-23] MEDS: LAMOTRIGINE 100 MG TABLET PO SCH (11:06)
[2020-02-23] MEDS: PAROXETINE HCL 20 MG TABLET PO SCH (11:06)
[2020-02-23] MEDS: VARENICLINE TARTRATE 0.5 MG TABLET PO SCH (11:06)
[2020-02-23] MEDS: DOCUSATE SODIUM 100 MG CAPSULE PO SCH (11:07)
[2020-02-23] MEDS ORDERED: CEFAZOLIN 2 GM/D5W RTU 2 GM/50 ML RTUPB IV SCH (12:00)
[2020-02-23] MEDS: ENOXAPARIN SODIUM INJ 40 MG/0.4 ML DISP.SYRIN SUBCUT SCH (12:38)
--- NOTE | 2020-02-23 12:48 | RADIOLOGY REPORT (SQ) ---
EXAM DESCRIPTION: U/S RETROPERITON (RENAL/AORTA) IMAGES COMPLETED DATE/TIME: 02/23/2020 12:39 pm REASON FOR STUDY: f/u of hydronephrosis hydroureter on CT COMPARISON: None. TECHNIQUE: Dynamic and static grayscale images acquired of the kidneys and bladder and recorded on P ACS. Additional selected color Doppler and spectral images recorded. LIMITATIONS: None. FINDINGS: RIGHT KIDNEY: Normal size, 12.3 cm. Normal echogenicity. No solid or suspicious masses. M ild hydronephrosis. No calcifications. LEFT KIDNEY: Normal size, 10.9 cm. Normal echogenicity. No solid or suspicious masses. No hydronephr osis. No calcifications. BLADDER: Incompletely filled. No masses. Bilateral ureteral jets are seen. OTHER FINDINGS: No other significant finding. IMPRESSION: There is mild right hydronephrosis. Bilateral ureteral jets are seen in the bladder. TECHNICAL DOCUMENTATION: JOB ID: [id number] 2010 [employer]- All Rights Reserved Reading location - IP/workstation name: [email or web address]
[2020-02-23] MEDS: MORPHINE SULFATE 10 MG/ML INJ IV PRN (12:53)
--- NOTE | 2020-02-23 13:20 | XCELERA REPORT ---
[address] [address] Transthoracic Echocardiogram Report Name: GLORIA HESS Age: 34 yrs Gender: Female : 1985 Patient Status: Inpatient Patient Location: [address] [place], [place] [id number] Study Date: 02/23/2020 09:56 AM History: Bacteremnia Endocarditis Height: 64 in Weight: 182 lb BSA: 1.9 m2 Procedure: A complete two-dimensional transthoracic echocardiogram was performed (2D, M-mode, spectral and color flow Doppler). The study was technically difficult with many images being suboptimal in quality. Reason For Study: mssa bacteremia. r/o endocarditis Previous Evaluation: No previous studies were available. History: Bacteremnia Endocarditis. Ordering Physician: HAMMAD DEMPSEY Performed By: Vonnie Coronado Interpretation Summary No vegetation by TTE. Consider AD if clinically indicated. Left ventricular systolic function is normal. The Ejection Fraction estimate is 55-60% The right ventricle is normal in size and function. There is a trace amount of mitral regurgitation A bicuspid aortic valve cannot be excluded. There is no aortic valve stenosis There is a mild amount of tricuspid regurgitation There is no pericardial effusion. No vegetation by TTE. Consider AD if clinically indicated. MMode/2D Measurements & Calculations RVDd: 2.3 cm LVIDd: 4.6 cm FS: 36.3 % Ao root diam: 2.4 cm IVSd: 1.1 cm LVIDs: 3.0 cm EDV(Teich): 99.0 ml Ao root area: 4.4 cm2 LVPWd: 0.93 cm ESV(Teich): 33.7 ml EF(Teich): 66.0 % Doppler Measurements & Calculations MV E max rosa m: MV dec slope: Ao V2 max: LV V1 max P.0 cm/sec 696.2 cm/sec2 140.7 cm/sec 5.1 mmHg MV A max rosa m: MV dec time: Ao max PG: LV V1 max: 74.9 cm/sec 0.16 sec 7.9 mmHg 112.4 cm/sec MV E/A: 1.5 PA V2 max: PI end-d rosa m: TR max rosa m: 89.5 cm/sec 75.1 cm/sec 226.3 cm/sec PA max P.2 mmHg TR max P.8 mmHg Left Ventricle The left ventricle is normal in size. There is normal left ventricular wall thickness. Left ventricular systolic function is normal. The Ejection Fraction estimate is 55-60%. Doppler measurements suggest normal left ventricular diastolic function. No regional wall motion abnormalities noted. Right Ventricle The right ventricle is normal in size and function. Mitral Valve The mitral valve is grossly normal. There is no evidence of mitral valve prolapse. There is no vegetation seen on the mitral valve. There is no mitral valve stenosis. There is a trace amount of mitral regurgitation. Aortic Valve The aortic valve opens well. A bicuspid aortic valve cannot be excluded. There is no aortic valvular vegetation. There is no aortic valve stenosis. No aortic regurgitation is present. Tricuspid Valve The tricuspid valve is normal in structure and function. There is no tricuspid valve vegetation. No significant tricuspid stenosis. There is a mild amount of tricuspid regurgitation. Doppler findings do not suggest pulmonary hypertension. Pulmonic Valve The pulmonic valve is normal in structure and function. There is no vegetation on the pulmonic valve. There is no pulmonic valvular stenosis. There is a trace amount of pulmonic regurgitation. Effusions There is no pericardial effusion. : HAMMAD DEMPSEY Anil
--- NOTE | 2020-02-23 14:03 | PDOC DISCHARGE SUMMARY ---
Impression - Admit/DC Date/PCP Admission Date/Primary Care Provider: 02/23/20 08:06 Discharge Date: 02/23/20 - Discharge Diagnosis (1) Acute pyelonephritis Is this a current diagnosis for this admission?: Yes (2) Hydronephrosis, right Is this a current diagnosis for this admission?: Yes (3) Hematuria Is this a current diagnosis for this admission?: Yes (4) Schizophrenia Is this a current diagnosis for this admission?: Yes (5) Tobacco abuse Is this a current diagnosis for this admission?: Yes (6) Obesity (BMI 30.0-34.9) Is this a current diagnosis for this admission?: Yes - Additional Information Discharge Diet: Regular Discharge Activity: Activity As Tolerated Prescriptions: Cefdinir 300 mg PO Q12 9 Days #18 capsule Naproxen 500 mg PO BID #10 tablet Oxycodone HCl [Oxy-Ir 5 mg Tablet] 5 mg PO Q4HP PRN #7 tab PRN Reason: Ondansetron [Zofran Odt 4 mg Tablet] 1 - 2 tab PO Q4HP PRN #10 tab.rapdis PRN Reason: Home Medications: Alprazolam [Xanax] 1 mg PO QID PRN 02/02/19 Lamotrigine [Lamictal] 100 mg PO DAILY 02/02/19 Paroxetine HCl [Paxil 20 mg Tablet] 20 mg PO QHS 02/02/19 Quetiapine Fumarate [Seroquel] 600 mg PO QHS 02/02/19 Naproxen 500 mg PO BID #10 tablet 02/20/20 Ondansetron [Zofran Odt 4 mg Tablet] 1 - 2 tab PO Q4HP PRN #10 tab.rapdis 02/20/20 Oxycodone HCl [Oxy-Ir 5 mg Tablet] 5 mg PO Q4HP PRN #7 tab 02/20/20 Cefdinir 300 mg PO Q12 9 Days #18 capsule 02/23/20 History of Present Illiness History of Present Illness: According to admitting provider: GLORIA HESS is a 34 year old female past medical history of schizophrenia who presented to ED complaining of to 3 days of dysuria, patient is stating that about 3 to 4 days ago she noticed that she was starting to have bladder infection [place] the [place] and took some OTC medications to flush her bladder, stating her symptoms did not get any better and she noticed quynh hematuria this morning, associated with right-sided flank pain, anorexia, nausea. Pain is sharp, 5/5 on severity scale, radiating from right flank to right groin, worsened with coughing, breathing and movement. In ED she was noted to be febrile, tachycardic, UA positive for leukocyte esterase and blood, leukocytosis, CT abdomen and pelvis showed marked hydronephrosis and hydroureter on the right without defined etiology. Hospitalist consulted for admission. Hospital Course Hospital Course: Patient was admitted to the hospital with right CVA pain, abdominal pain. Blood work revealed leukocytosis significantly. Urinalysis revealed UTI. CT abdomen/pelvis was positive for right hydroureter and hydronephrosis but no nephrolithiasis was noted. Notably patient was also experiencing hematuria at the time of admission. Patient was subsequently admitted for acute pyelonephritis. It was felt that her hematuria as well as hydr oureter/hydronephrosis on the right side will likely secondary to right ureteral calculus which had likely passed at the time of her CT scan. Her hematuria has since then resolved. She has received treatment with IV antibiotics and fluids. Her symptoms have improved. Her leukocytosis has resolved. She is no longer having low-grade elevated temperatures. Her urine culture showed pansensitive E. coli. Her blood culture was also positive in 1 out of 4 bottles for MSSA as well as coagulase-negative staph. This is highly suspicious for contaminant especially as she lacks risk factors and denies IV drug use and repeat blood cultures are all negative. We did do an echocardiogram which shows no evidence of any vegetation. A renal ultrasound was done today to follow-up on her hydronephrosis which shows that the right hydronephrosis is only mild at this point with no evidence of obstruction as there is good bilateral ureteral jets into the bladder. Patient will be discharged on cefdinir to complete treatment. She has been instructed to follow-up with a primary care provider. Physical Exam Vital Signs: Temp Pulse Resp BP Pulse Ox 97.4 F 63 16 102/59 L 99 02/23/20 11:36 02/23/20 11:36 02/23/20 11:36 02/23/20 11:36 02/23/20 11:36 Intake & Output 02/22/20 02/23/20 02/24/20 06:59 06:59 06:59 Intake Total 4820 0433 1450 Output Total 3150 3150 Balance 9459 618 1109 Weight 81.8 kg 82.9 kg General appearance: PRESENT: no acute distress, cooperative Neck exam: ABSENT: JVD Respiratory exam: PRESENT: symmetrical, unlabored. ABSENT: accessory muscle use, retraction GI/Abdominal exam: PRESENT: soft, tenderness - Mild suprapubic. ABSENT: rebound, rigid Neurological exam: PRESENT: alert, awake, oriented to person, oriented to place, oriented to time Results Laboratory Results: WBC 7.6 10^3/uL (4.0-10.5) 02/23/20 09:24 RBC 3.19 10^6/uL (3.72-5.28) L 02/23/20 09:24 Hgb 10.4 g/dL (12.0-15.5) L 02/23/20 09:24 Hct 30.0 % (36.0-47.0) L 02/23/20 09:24 MCV 94 fl (80-97) 02/23/20 09:24 MCH 32.5 pg (27.0-33.4) 02/23/20 09:24 MCHC 34.5 g/dL (32.0-36.0) 02/23/20 09:24 RDW 12.9 % (11.5-14.0) 02/23/20 09:24 Plt Count 315 10^3/uL (150-450) 02/23/20 09:24 Lymph % (Auto) 26.4 % (13-45) 02/23/20 09:24 [place] % (Auto) 11.6 % (3-13) 02/23/20 09:24 Eos % (Auto) 3.8 % (0-6) 02/23/20 09:24 Baso % (Auto) 0.5 % (0-2) 02/23/20 09:24 Absolute Neuts (auto) 4.4 10^3/uL (1.7-8.2) 02/23/20 09:24 Absolute Lymphs (auto) 2.0 10^3/uL (0.5-4.7) 02/23/20 09:24 Absolute Monos (auto) 0.9 10^3/uL (0.1-1.4) 02/23/20 09:24 Absolute Eos (auto) 0.3 10^3/uL (0.0-0.6) 02/23/20 09:24 Absolute Basos (auto) 0.0 10^3/uL (0.0-0.2) 02/23/20 09:24 Seg Neutrophils % 57.7 % (42-78) 02/23/20 09:24 Sodium 138.4 mmol/L (137-145) 02/23/20 09:24 Potassium 3.9 mmol/L (3.6-5.0) 02/23/20 09:24 Chloride 110 mmol/L (98-107) H 02/23/20 09:24 Carbon Dioxide 23 mmol/L (22-30) 02/23/20 09:24 Anion Gap 5 (5-19) 02/23/20 09:24 BUN 6 mg/dL (7-20) L 02/23/20 09:24 Creatinine 0.58 mg/dL (0.52-1.25) 02/23/20 09:24 Creatinine 0.58 mg/dL (0.52-1.25) 02/23/20 09:24 Est GFR ( Amer) > 60 (>60) 02/23/20 09:24 Est GFR ( Amer) > 60 (>60) 02/23/20 09:24 Est GFR (MDRD) Non-Af > 60 (>60) 02/23/20 09:24 Est GFR (MDRD) Non-Af > 60 (>60) 02/23/20 09:24 Glucose 82 mg/dL (75-110) 02/23/20 09:24 Calcium 8.2 mg/dL (8.4-10.2) L 02/23/20 09:24 Magnesium 1.6 mg/dL (1.6-2.3) 02/21/20 04:29 Total Bilirubin 0.3 mg/dL (0.2-1.3) 02/21/20 04:29 Direct Bilirubin 0.1 mg/dL (0.0-0.4) 02/21/20 04:29 Neonat Total Bilirubin Not Reportable 02/21/20 04:29 Neonat Direct Bilirubin Not Reportable 02/21/20 04:29 Neonat Indirect Bili Not Reportable 02/21/20 04:29 AST 14 U/L (14-36) 02/21/20 04:29 ALT 8 U/L (<35) 02/21/20 04:29 Alkaline Phosphatase 55 U/L (38-126) 02/21/20 04:29 Total Protein 5.4 g/dL (6.3-8.2) L 02/21/20 04:29 Albumin 3.0 g/dL (3.5-5.0) L 02/21/20 04:29 Urine Color YELLOW 02/22/20 12:00 Urine Appearance CLEAR 02/22/20 12:00 Urine pH 6.0 (5.0-9.0) 02/22/20 12:00 Ur Specific [place] 1.012 02/22/20 12:00 Urine Protein NEGATIVE mg/dL (NEGATIVE) 02/22/20 12:00 Urine Glucose (UA) NEGATIVE mg/dL (NEGATIVE) 02/22/20 12:00 Urine Ketones NEGATIVE mg/dL (NEGATIVE) 02/22/20 12:00 Urine Blood MODERATE (NEGATIVE) H 02/22/20 12:00 Urine Nitrite NEGATIVE (NEGATIVE) 02/22/20 12:00 Urine Bilirubin NEGATIVE (NEGATIVE) 02/22/20 12:00 Urine Urobilinogen NEGATIVE mg/dL (<2.0) 02/22/20 12:00 Ur Leukocyte Esterase SMALL (NEGATIVE) H 02/22/20 12:00 Urine WBC (Auto) 33 /HPF 02/22/20 12:00 Urine RBC (Auto) 6 /HPF 02/22/20 12:00 Urine Bacteria (Auto) TRACE /HPF 02/22/20 12:00 Urine WBC Clumps MANY /HPF 02/20/20 10:20 Squamous Epi Cells Auto 3 /HPF 02/20/20 10:20 U Non-Squamous Epis Auto 2 /HPF 02/20/20 10:20 Urine Mucus (Auto) RARE /LPF 02/22/20 12:00 Urine Ascorbic Acid NEGATIVE (NEGATIVE) 02/22/20 12:00 Urine HCG, Qual NEGATIVE (NEGATIVE) 02/20/20 10:20 Stl C. Difficile GDH Ag NEGATIVE (NEGATIVE) 02/21/20 19:01 Stl C.difficile Tox A&B NEGATIVE (NEGATIVE) 02/21/20 19:01 Impressions: Abdomen/Pelvis CT 02/20/20 10:31 IMPRESSION: Marked hydronephrosis and hydroureter on the right without defined etiology. Possibly passed stone. Renal Ultrasound 02/23/20 00:00 IMPRESSION: There is mild right hydronephrosis. Bilateral ureteral jets are seen in the bladder. Plan Time Spent: Greater than 30 Minutes Stroke Is this a Stroke Patient?: No Acute Heart Failure Is this a Heart Failure Patient?: No
[2020-02-23 14:47] LABS: VANCOMYCIN,TROUGH 11.7 ug/mL (5.0-20.0)
[2020-02-23 16:04] VITALS: BP 110/83
== END 2020-02-23 16:12 | disposition home or self-care (01) | DRG 690 ==
LOC: ER 10:12 → EH 15:31 → 4W 17:16 → 2N 02-21 21:36 → OBSVTOIN 02-23 08:06
PROVIDERS: ADMIT Internal Medicine; ATTEND Internal Medicine
DX: N13.6 Pyonephrosis (principal); B96.20 Unspecified Escherichia coli [E. coli] as the cause of diseases classified elsewhere; F17.200 Nicotine dependence, unspecified, uncomplicated; F41.9 Anxiety disorder, unspecified; N20.0 Calculus of kidney; F20.9 Schizophrenia, unspecified; F31.9 Bipolar disorder, unspecified; R31.0 Gross hematuria; E66.9 Obesity, unspecified; Z68.30 Body mass index [BMI] 30.0-30.9, adult
CPT/HCPCS: 36415; 74176; 76770; 80048; 80053; 80202; 81001; 81025; 82565; 83735; 85025; 85027; 87040; 87077; 87086; 87088; 87150; 87186; 87324; 87449; 93306; 96361; 96365; 96375; 96376; 99285; G0378; J0690; J0694; J0696; J1170; J1885; J2270; J2405; J2550; J3370; J3490; J7030; J7060